=== PATIENT | female | born 1950 | race Two or more races ===

== ENCOUNTER 2019-05-27 10:28 | Emergency (ER) | payer MEDICARE, MEDICAID ==
[~2019-05-27] VITALS: Ht 154.9 cm; Wt 68.0 kg
--- NOTE | 2019-05-27 10:36 | Emergency Room Report ---
History of Present Illness General Chief Complaint: Edema Source: Patient, EMS Present Illness HPI Presents with dyspnea, swelling all through her body and chest pain. The chest pains been intermittent. She is transported by BLS. No EKG or Accu-Chek were done in the field. The patient has a history of diabetes. ALS was told that her main complaint was swelling in her hands. The patient characterizes the chest pain is somewhat sharp but pressure on the left-hand side. She rates the pain 6/10. She has minimal exertion. The patient's past history is unclear. She has a history of congestive heart failure. 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 Patient takes insulin. No fevers, chills, sore throat, chest pain, palpitations, nausea, vomiting, diarrhea, dysuria, abdominal pain, joint pain, rashes, depression, anxiety, visual changes, dizziness, headache. Allergies: Coded Allergies: No Known Allergies (Unverified , 05/27/19) Patient History Past Medical History: see triage record Social History: Denies: smoking Social History Narrative From home Last Menstrual Period: n/a Reviewed Nursing Documentation: PMH: Agreed; PSxH: Agreed Nursing Documentation-PMH Past Medical History: No History, Except For Hx Hypertension: Yes Hx Diabetes: Yes - Amputation of left leg Review of Systems All Other Systems: negative except mentioned in HPI Physical Exam Vital Signs Date Time Temp Pulse Resp B/P (MAP) Pulse Ox O2 Delivery O2 Flow Rate FiO2 05/27/19 10:23 98.2 67 18 172/65 (100) 96 Room Air Sp02 EP Interpretation: reviewed, normal General Appearance: alert, GCS 15, Chronically Ill Eyes: bilateral eye PERRL, bilateral eye EOMI, bilateral eye conjunctivae pale ENT: moist mucus membranes Neck: full range of motion Respiratory: chest non-tender, no respiratory distress - mild, decreased breath sounds, crackles, rales Cardiovascular #1: bradycardia, edema - anasarca Cardiovascular #2: 2+ radial (R) Gastrointestinal: soft, other - possible ascites Genitourinary: no CVA tenderness Musculoskeletal: back normal, other - Above-knee amputation left leg Neurologic: motor strength/tone normal - with some weakness Psychiatric: depressed affect Skin: no rash, warm/dry, pallor, other - sallo Medical Decision Making Diagnostic Impression: Primary Impression: CHF (congestive heart failure) Qualified Codes: I50.9 - Heart failure, unspecified Additional Impressions: Renal insufficiency Right lower lobe pulmonary infiltrate Pleural effusion, right UTI (urinary tract infection) Qualified Codes: N30.00 - Acute cystitis without hematuria ER Course Patient presents with dyspnea chest pain rales and anasarca. Differential includes acute myocardial infarction, congestive heart failure, cirrhosis, DVT, occult infection amongst others. Patient is evaluated by EKG, chest x-ray and labs. The patient is given a dose of Lasix immediately. In addition she is treated with nitro paste. EKG with sinus. No acute injury. Chest x-ray with CHF, right lower lobe infiltrate and possible effusion. Labs with normal white count, anemia. Renal insufficiency with minimal elevated potassium. Negative troponin, elevated BNP. Presented to [facility]. Discussed with Dr. Gonzales who accepts patient. No response after for transfer. Admit here. Diuresing. Still with chest pain and min dyspnea. Discussed with Dr. Alcaraz who accepts patient here. After this an ambulance shows up saying that they are transferring her again to [facility] Laboratory Tests Test 05/27/19 10:36 05/27/19 10:49 05/27/19 11:45 05/27/19 13:20 Lactic Acid Level 0.80 mmol/L (0.4-2.0) White Blood Count 3.8 K/UL (4.8-10.8) L Red Blood Count 4.84 M/UL (4.20-5.40) Hemoglobin 13.2 G/DL (12.0-16.0) Hematocrit 43.4 % (37.0-47.0) Mean Corpuscular Volume 90 FL (80-99) Mean Corpuscular Hemoglobin 27.2 PG (27.0-31.0) Mean Corpuscular Hemoglobin Concent 30.3 G/DL (32.0-36.0) L Red Cell Distribution Width 18.1 % (11.6-14.8) H Platelet Count 183 K/UL (150-450) Mean Platelet Volume 6.7 FL (6.5-10.1) Neutrophils (%) (Auto) 71.9 % (45.0-75.0) Lymphocytes (%) (Auto) 17.1 % (20.0-45.0) L Monocytes (%) (Auto) 9.5 % (1.0-10.0) Eosinophils (%) (Auto) 1.0 % (0.0-3.0) Basophils (%) (Auto) 0.6 % (0.0-2.0) Sodium Level 142 MMOL/L (136-145) Potassium Level 5.3 MMOL/L (3.5-5.1) H Chloride Level 111 MMOL/L (98-107) H Carbon Dioxide Level 23 MMOL/L (21-32) Anion Gap 8 mmol/L (5-15) Blood Urea Nitrogen 47 mg/dL (7-18) H Creatinine 1.4 MG/DL (0.55-1.30) H Estimate Glomerular Filtration Rate 37.2 mL/min (>60) Glucose Level 144 MG/DL (74-106) H Calcium Level 8.2 MG/DL (8.5-10.1) L Magnesium Level 2.0 MG/DL (1.8-2.4) Total Bilirubin 0.5 MG/DL (0.2-1.0) Aspartate Amino Transferase (AST) 31 U/L (15-37) Alanine Aminotransferase (ALT) 23 U/L (12-78) Alkaline Phosphatase 467 U/L (46-116) H Total Creatine Kinase 98 U/L (26-308) Troponin I 0.000 ng/mL (0.000-0.056) Pro-B-Type Natriuretic Peptide 8414 pg/mL (0-125) H Total Protein 7.1 G/DL (6.4-8.2) Albumin 2.5 G/DL (3.4-5.0) L Globulin 4.6 g/dL Albumin/Globulin Ratio 0.5 (1.0-2.7) L Prothrombin Time 12.0 SEC (9.30-11.50) H Prothrombin Time INR 1.1 (0.9-1.1) PTT 28 SEC (23-33) Urine Color Yellow Urine Appearance Clear Urine pH 5 (4.5-8.0) Urine Specific [place] 1.015 (1.005-1.035) Urine Protein 3+ (NEGATIVE) H Urine Glucose (UA) Negative (NEGATIVE) Urine Ketones Negative (NEGATIVE) Urine Blood Negative (NEGATIVE) Urine Nitrite Negative (NEGATIVE) Urine Bilirubin Negative (NEGATIVE) Urine Urobilinogen Normal MG/DL (0.0-1.0) Urine Leukocyte Esterase 1+ (NEGATIVE) H Urine RBC Pending Urine WBC Pending Urine Squamous Epithelial Cells Pending Urine Bacteria Pending EKG Diagnostic Results Rate: normal Rhythm: NSR ST Segments: no acute changes Rhythm Strip Diag. Results EP Interpretation: yes Rhythm: NSR, no PVC's, no ectopy Chest X-Ray Diagnostic Results Chest X-Ray Diagnostic Results : Chest X-Ray Ordered: Yes # of Views/Limited/Complete: 1 View Indication: Other EP Interpretation: Yes Interpretation: no pneumothorax, other - RLL infiltrate and possible effusion, chf Impression: Other Electronically Signed by: Electronically signed by Bassam Leal MD Last Vital Signs Date Time Temp Pulse Resp B/P (MAP) Pulse Ox O2 Delivery O2 Flow Rate FiO2 05/27/19 16:35 98.2 57 18 134/70 99 Nasal Cannula 2.0 Status: improved Disposition: XFER SHT-TRM HOSP Condition: Serious Bassam Leal MD May 27, 2019 10:36
[2019-05-27] MEDS ORDERED: Nitroglycerin 2% oint pkt TOPIC ONE (10:45)
[2019-05-27 11:11] LABS: BASOPHILS % (AUTO) 0.6 % (0.0-2.0); HEMATOCRIT 43.4 % (37.0-47.0); HEMOGLOBIN 13.2 G/DL (12.0-16.0); LYMPHOCYTES % (AUTO) 17.1 % (20.0-45.0); MEAN CORPUSCULAR VOLUME 90 FL (80-99); MONOCYTES % (AUTO) 9.5 % (1.0-10.0); NEUTROPHILS % (AUTO) 71.9 % (45.0-75.0); PLATELET COUNT 183 K/UL (150-450); RED BLOOD COUNT 4.84 M/UL (4.20-5.40); RED CELL DISTRIBUTION WIDTH 18.1 % (11.6-14.8); WHITE BLOOD COUNT 3.8 K/UL (4.8-10.8)
[2019-05-27 11:15] VITALS: BP 154/71
[2019-05-27 11:21] LABS: ANION GAP 8 mmol/L (5-15); BLOOD UREA NITROGEN 47 mg/dL (7-18); CALCIUM 8.2 MG/DL (8.5-10.1); CARBON DIOXIDE 23 MMOL/L (21-32); CHLORIDE 111 MMOL/L (98-107); CREATININE 1.4 MG/DL (0.55-1.30); POTASSIUM 5.3 MMOL/L (3.5-5.1); SODIUM 142 MMOL/L (136-145)
[2019-05-27 11:31] LABS: ALANINE AMINOTRANSFERASE 23 U/L (12-78); ALBUMIN 2.5 G/DL (3.4-5.0); ALBUMIN/GLOBULIN RATIO 0.5 (1.0-2.7); ALKALINE PHOSPHATASE 467 U/L (46-116); ASPARTATE AMINO TRANSFERASE 31 U/L (15-37); BILIRUBIN,TOTAL 0.5 MG/DL (0.2-1.0); CREATINE KINASE 98 U/L (26-308)
[2019-05-27] MEDS ORDERED: Morphine Sulfate 2mg/ml Inj(IV/IM USE ONLY) IVP ONE ×2 (12:00→15:00)
[2019-05-27] MEDS ORDERED: Piperacillin/Tazobactam 3.375 GM in NS 110 ML IVPB ONE (12:00)
[2019-05-27] MEDS ORDERED: Vancomycin 1 GM in NS 275 ML IVPB ONE (12:00)
--- NOTE | 2019-05-27 12:15 | Diagnostic Imaging Report ---
Indication: Dyspnea Comparison: None A single view chest radiograph was obtained. Findings: There is enlargement of the cardiac silhouette with pulmonary vascular redistribution and prominence, hazy vessel margins and the suggestion of interstitial edema consistent with CHF. Hazy opacity obscuring the right hemidiaphragm noted. Bones are osteopenic. IMPRESSION: Congestive heart failure. Suspected right pleural effusion.
[2019-05-27 12:32] LABS: INR 1.1 (0.9-1.1)
[2019-05-27 13:00] VITALS: BP 134/70
[2019-05-27 13:46] LABS: APPEARANCE,URINE CLEAR; BILIRUBIN, URINE NEGATIVE (NEGATIVE); GLUCOSE, URINE (UA) NEGATIVE (NEGATIVE); KETONES,URINE NEGATIVE (NEGATIVE); LEUKOCYTE ESTERASE ,URINE 1+ (NEGATIVE); NITRITE,URINE NEGATIVE (NEGATIVE); PH,URINE 5 (4.5-8.0); PROTEIN,URINE 3+ (NEGATIVE); UROBILINOGEN,URINE NORMAL MG/DL (0.0-1.0)
[2019-05-27 13:48] LABS: COLOR,URINE YELLOW
[2019-05-27] MEDS ORDERED: cefTRIAXone 1 GM in NS 55 ML IVPB ONE (15:00)
[2019-05-27 16:35] VITALS: BP 134/70
--- NOTE | 2019-05-29 14:33 | Cardiology Report ---
APPROVED REPORT EKG Measurement Heart [id number] Sinus rhythm Low voltage QRS Cannot rule out Anterior infarct, age undetermined Abnormal ECG
== END 2019-05-27 16:35 | disposition short-term general hospital (02) ==
LOC: EDBD 10:28 → EMR 11:32 → EDBEDREQ 13:02 → EMR 16:35
DX: I50.9 Heart failure, unspecified (principal); N28.9 Disorder of kidney and ureter, unspecified; R91.8 Other nonspecific abnormal finding of lung field; J90 Pleural effusion, not elsewhere classified; N30.00 Acute cystitis without hematuria; E11.9 Type 2 diabetes mellitus without complications; I10 Essential (primary) hypertension; Z79.4 Long term (current) use of insulin; Z89.612 Acquired absence of left leg above knee
CPT/HCPCS: 36415; 71045; 80053; 81003; 82550; 83605; 83735; 83880; 84484; 85025; 85610; 85730; 93005; 96365; 96367; 96368; 96375; 96376; 99285; J0696; J1940; J2270; J2405; J2543; J3370; J7050